=== PATIENT | female | born 2000 | race Caucasian/White ===

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

== ENCOUNTER 2023-07-05 10:22 | Emergency (ER) | payer OTHER, SELFPAY ==
[2023-07-05] MEDS ORDERED: Acetaminophen 325 MG TAB ONE (12:52)
[2023-07-05 13:12] LABS: Bilirubin Negative (Negative); Blood, Urine Small (Negative); Glucose, Urine (Dipstick) Negative (Negative); Ketone, Urine Negative (Negative); Leukocyte Negative (Negative); Nitrite Negative (Negative); Protein, Urine (Dipstick) Negative (Neg-Trace); Urobilinogen 0.2 mg/dL (Less than 2)
[2023-07-05 13:20] LABS: Clarity Hazy (Clear)
[2023-07-05 13:24] LABS: Bacteria/HPF 2+ HPF (None Seen); CAUTI Indications for Culture Dysuria,urgency,freq; RBC/HPF 0-3 HPF (0-3); WBC/HPF 0-3 HPF (0-3)
[2023-07-05 13:25] LABS: Urine Culture Reflex No No
== END 2023-07-05 13:44 | disposition home or self-care (01) ==
LOC: ERS 10:22
DX: M25.552 Pain in left hip (principal); M25.551 Pain in right hip
CPT/HCPCS: 72170; 81001; 99283

== ENCOUNTER 2024-10-07 07:44 | Outpatient (CLI) | payer OTHER ==
[2024-10-07] MEDS ORDERED: Magnevist 469MG/ML 20 ML VIAL ONE (15:04)
== END 2024-10-07 07:45 | disposition home or self-care (01) ==
LOC: BICMRI 07:44
PROVIDERS: ATTEND Nurse Practitioner Family
DX: R51.9 Headache, unspecified (principal)
CPT/HCPCS: 70553